=== PATIENT | male | born 1955 | race African-American/Black ===

== ENCOUNTER 2018-05-13 09:29 | Day surgery (SDC) | payer OTHER ==
[~2018-05-13] VITALS: Ht 185.4 cm; Wt 100.0 kg
--- NOTE | ~2018-05-13 | OP ---
PATIENT NAME: SAUL HUTSON MEDICAL RECORD: [id number] :51 LOCATION:D.OPS ADMISSION DATE: SURGEON: KATHIE ARMENTA DO DATE OF OPERATION: 05/13/2018 PROCEDURE: Colonoscopy. INDICATION FOR PROCEDURE: Colon cancer screening. SCOPE: Olympus video pediatric colonoscope. MEDICATIONS: Propofol 420 mg IV per anesthesia. WITHDRAWAL TIME: 12 minutes. ESTIMATED BLOOD LOSS: Minimal. COMPLICATIONS: None. FINDINGS: Informed consent was given. The patient was made comfortable with the above medication. After reaching an adequate level of sedation by slow IV push, the patient was placed on his left side. A digital rectal examination was performed and was normal. The endoscope was then advanced under direct visualization through the rectum to the cecum, confirmed by the presence of appendiceal orifice and ileocecal valve. The endoscope was slowly withdrawn and mucosa was carefully examined. The prep quality was fair. There were 2 polyps visualized on today's examination. They were both located in the ascending colon. They were both sessile and ranged in size from 2 mm to 4 mm in diameter. Both were removed using hot forceps and completely retrieved. Retroflexion was performed in the rectum with visualization of grade I internal hemorrhoids without bleeding. The endoscope was then withdrawn from the patient. The patient tolerated the procedure well and there were no complications. IMPRESSIONS: 1. Two ascending colon polyps, removed using hot forceps. 2. Grade I internal hemorrhoids without bleeding. PLAN AND RECOMMENDATIONS: 1. Discharge home when recovery parameters are met. 2. Followup biopsy specimen results. 3. High-fiber diet. 4. Continue current medications. 5. Recall colonoscopy in 5 years. TRANSINT:[id number] Voice Confirmation ID: [id number] DOCUMENT ID: [id number] KATHIE ARMENTA DO at 1300 CC: [id number] DICTATION DATE: 05/13/18 1322 CLINIC OFFICE COORDINATOR: 05/13/18 1359 [facility] 05/13/[address] [id number]
[2018-05-13 10:09] LABS: HEMOGLOBIN 14.3 g/dL (13.5-17.5); MCH 30.9 pg (26.0-34.0); MCV 90.7 fL (80.0-100.0); MEAN PLATELET VOLUME 10.2 fL (7.4-10.4); RBC 4.63 10x6/uL (4.20-6.10); RDW 13.2 % (11.5-14.5); WBC 7.2 10x3/uL (4.8-10.8)
[2018-05-13] MEDS ORDERED: LIPITOR40 MG PO (11:16)
[2018-05-13] MEDS ORDERED: BAYER CHEWABLE81 MG PO (11:16)
[2018-05-13] MEDS ORDERED: COREG6.25 MG PO (11:17)
[2018-05-13] MEDS ORDERED: ALTACE5 MG PO (11:17)
[2018-05-13 11:23] VITALS: BP 160/100; Ht 185.4 cm; Wt 100.0 kg
== END 2018-05-13 14:38 | disposition home or self-care (01) ==
LOC: D.OPS 09:29
PROVIDERS: Anesthesiology
DX: Z12.11 Encounter for screening for malignant neoplasm of colon (principal); K63.5 Polyp of colon